=== PATIENT | female | born 2000 | race Caucasian/White ===

== ENCOUNTER 2020-04-22 18:04 | Emergency (ER) | payer OTHER ==
[2020-04-22 18:17] VITALS: BP 116/74; PULSE 75; TEMP 98.7; BMI 19.8
--- NOTE | 2020-04-22 18:27 | PDOC ---
History of Present Illness - General Stated Complaint: LS EAR ACHE- LOSS OF HEARING Time Seen by Provider: 04/22/20 18:09 History Source: Patient Exam Limitations: No Limitations Past History - Travel History Traveled outside of the country in the last 30 days: No Close contact w/someone who was outside of country & ill: No - Medical History Allergies/Adverse Reactions: Allergies Allergy/AdvReac Type Severity Reaction Status Date / Time No Known Allergies Allergy Unverified 04/22/20 18:08 Home Medications: Ambulatory Orders Amoxicillin - [Amoxicillin 500mg Capsule -] 500 mg PO BID #20 capsule 04/22/20 Ibuprofen 600 mg PO Q6H #30 tablet 04/22/20 COPD: No - Reproductive History Is Patient Now?: No - Psycho-Social/Smoking History Smoking History: Never smoked Have you smoked in the past 12 months: No Information on smoking cessation initiated: No - Substance Abuse Hx (Audit-C & DAST Scrn) How often the patient has a drink containing alcohol: Never Score: In Men: 4 or > Positive; In Women: 3 or > Positive: 0 Screen Result (Pos requires Nsg. Audit-10AR): Negative In the last yr the pt used illegal drug/Rx for NonMed reason: No Score: Yes response is considered Positive: 0 Screen Result (Positive result requires Nsg. DAST-10): Negative Review of Systems - Review of Systems Able to Perform ROS?: Yes Comments:: 04/22/20 18:20 CONSTITUTIONAL: Absent: fever, chills, diaphoresis, generalized weakness, malaise, loss of appetite HEENT: Present: L ear pain Absent: rhinorrhea, nasal congestion, throat pain, throat swelling, difficulty swallowing, mouth swelling, eye pain, visual Changes SKIN: Absent: rash, itching, pallor NEUROLOGIC: Absent: headache, focal weakness or paresthesias, dizziness, unsteady gait, seizure, mental status changes, bladder or bowel incontinence PSYCHIATRIC: Absent: anxiety, depression, suicidal or homicidal ideation, hallucinations. Is the patient limited [place] proficient: No *Physical Exam - Vital Signs Last Vital Signs Temp Pulse Resp BP Pulse Ox 98.7 F 75 17 116/74 100 04/22/20 18:05 04/22/20 18:05 04/22/20 18:05 04/22/20 18:05 04/22/20 18:05 - Physical Exam 04/22/20 18:22 GENERAL: The patient is awake, alert, and fully oriented, in no acute distress. HEAD: Normal with no signs of trauma. EYES: Pupils equal, round and reactive to light, extraocular movements intact, sclera anicteric, conjunctiva clear. HEENT: No nasal congestion or rhinorrhea. No sinus Tenderness. Mucous membranes are moist. No tonsillar erythema, exudate or edema. Uvula is midline. L TM bulging, dullness and erythema. R TM appears normal. EXTREMITIES: Normal range of motion, no edema. NEUROLOGICAL: Normal speech, normal gait. PSYCH: Normal mood, normal affect. SKIN: Warm, Dry, normal turgor, no rashes or lesions noted. Medical Decision Making - Medical Decision Making 04/22/20 18:26 The patient is a 20-year-old female with no past medical history, who presents to the ER for left ear pain and loss of hearing since Sunday. She states she went to the beach and got water in her ear. 2 days later she noticed that her hearing started to decrease. She states that she feels pressure behind the ear. Denies fevers, chills, sore throat, difficulty swallowing, right ear pain. A/P: Otitis media On exam patient has a clinical otitis media with a bulging erythematous left TM. Ear canal without evidence of otitis externa. No tenderness palpation of the tragus. We will treat with amoxicillin twice daily for 10 days. Discharge home with primary care follow-up. I discussed the physical exam findings, ancillary test results and final diagnoses with the patient. I answered all of the patient's questions. The patient was satisfied with the care received and felt comfortable with the discharge plan and treatment plan. The Patient agrees to follow up with the primary care physician/specialist within 24-72 hours. Return precautions were given. Discharge - Discharge Information Problems reviewed: Yes Clinical Impression/Diagnosis: Otitis media Qualifiers: Otitis media type: suppurative Chronicity: acute Laterality: left Recurrence: non-recurrent Spontaneous tympanic membrane rupture: without spontaneous rupture Qualified Code(s): H66.002 - Acute suppurative otitis media without spontaneous rupture of ear drum, left ear Disposition: HOME - Admission No - Follow up/Referral Referrals: Rodolfo Mon MD [Staff Physician] - - Patient Discharge Instructions Patient Printed Discharge Instructions: DI for Otitis Media (Middle Ear Infection)-Child Additional Instructions: You have an ear infection Please take the antibiotics as prescribed. Take the entire dose even if you feel better. You may take Tylenol or Motrin as needed for pain. Follow the manufacture's instructions. Do not put anything in the ear. Keep the ear clean and dry Follow up with your primary care doctor or ENT within the week. A referral has been provided to you Return to the ED if you have worsening pain, fevers, chills, or have any changes in your symptoms. - Post Discharge Activity Work/Back to School Note: Back to Work
== END 2020-04-22 18:30 | disposition home or self-care (01) ==
LOC: JERFT 18:04
DX: H66.002 Acute suppurative otitis media without spontaneous rupture of ear drum, left ear (principal)
CPT/HCPCS: 99282-25

== ENCOUNTER 2021-05-29 03:29 | Emergency (ER) | payer OTHER ==
[2021-05-29 03:38] VITALS: BP 100/62; PULSE 62; TEMP 97.9; BMI 24.2
== END 2021-05-29 03:43 | disposition home or self-care (01) ==
LOC: FER 03:29
DX: R51.9 Headache, unspecified (principal)
CPT/HCPCS: 99282-25